=== PATIENT | female | born 1985 | race Caucasian/White ===

== ENCOUNTER → 2018-07-09 | Outpatient (CLI) | payer OTHER ==
--- NOTE | 2018-07-10 06:18 | US ---
Procedure: US GREATER THAN 14 WEEKS Date: 07/09/2018 Referring Provider: Alvaro Ewing Clinical Indication: Z33.1 Comparison: None. Real-time ultrasound scanning was obtained over the gravid uterus and termite control service representative images recorded. There is a single, live intrauterine in cephalic presentation, which demonstrates spontaneous movement during the examination. The placenta is posterior and does not cover the cervical os on this exam. biometry as follows: BPD: 4.27 cm 18 weeks 6 days HC: 15.78 cm 18 weeks 5 days AC: 12.58 cm 18 weeks 1 day FL: 2.64 cm 18 weeks 0 days EFW: 228 grams +/- 34 grams EFW by AUA percentile: 39% KEEGAN 15.1 cm. The average estimated gestational age is 18 weeks 3 days. Estimated date of delivery is 12/07/2018. The anatomic survey demonstrates normal intracranial landmarks, bony spinal column free of gross defects, left-sided stomach, three vessel umbilical cord with normal cord insertion, extremities, kidneys, bladder and a 4-chamber heart with heart rate of 142 bpm. Impression: 1. Single live intrauterine with an estimated gestational age of 18 weeks 3 days and an estimated delivery date of 12/07/2018. 2. The anatomic survey is normal. 3. EFW by AUA percentile: 39% Electronically signed by: Howard Rodriguez MD 07/10/2018 6:16 AM NATURAL FABRICATOR
== END ==
LOC: US 16:38
PROVIDERS: ATTEND General Practice
DX: Z34.90 Encounter for supervision of normal pregnancy, unspecified, unspecified trimester (principal)

== ENCOUNTER → 2018-09-12 | Outpatient (CLI) | payer OTHER | LOC: LAB.O 09:12 | PROVIDERS: ATTEND General Practice | DX: O24.410 Gestational diabetes mellitus in pregnancy, diet controlled (principal) ==